=== PATIENT | female | born 1990 | race Caucasian/White ===

== ENCOUNTER 2016-10-11 10:46 | Outpatient (CLI) | payer OTHER | END 2016-10-11 10:47 | disposition home or self-care (01) | DX: M47.816 Spondylosis without myelopathy or radiculopathy, lumbar region (principal); Z98.1 Arthrodesis status; M54.5 Low back pain ==

== ENCOUNTER 2017-04-29 12:48 | Outpatient (CLI) | payer OTHER ==
[2017-04-29] MEDS ORDERED: GADOBUTROL 10 MMOL/10 ML VIAL IVP ONE (13:48)
--- NOTE | 2017-04-29 17:20 | MRI Preliminary Report ---
Exam: MRI Brain W/WO Impressions: 1. Suspicion for asymmetrical hypoenhancement within the right side of the pituitary maximum dimensio n 7 mm could represent a microadenoma, correlate clinically, no significant mass effect. Pituitary ot herwise not enlarged. Remaining brain and orbits are negative. [facility] SITE ID: [id number]
--- NOTE | 2017-04-29 17:23 | MRI Report ---
EXAM: MRI BRAIN AND PITUITARY EXAM DATE: 04/29/2017 02:01 PM. CLINICAL HISTORY: GALACTORRHEA. COMPARISON: Prior CT study had 09/18/2014. TECHNIQUE: Multiplanar, multisequence T1-weighted and fluid-sensitive MR sequences of the brain and p ituitary were performed. Other: None. IV Contrast: 5 cc Gadavist. Findings: Relevant images are indicated (image number, series number). There is no acute or subacute ischemic changes in the brain. Gradient echo imaging demonstrates no he mosiderin deposition present in the brain. Dynamic, static post contrast imaging of the pituitary sug gest right parasagittal hypoenhancing lesion 7 mm in maximum dimension craniocaudal (7, 1201), dynami c imaging demonstrates suspected asymmetrical hypoenhancement within the right side of the pituitary (30, 1101) postcontrast imaging demonstrates persistent of the hypoenhancing region with slight asymm etrical enlargement of the right-sided pituitary compared with lab. Infundibulum slightly deviated to wards the right. Overall pituitary not enlarged, infundibulum negative. Midbrain, craniocervical junc tion, limited evaluation upper cervical cord negative. Supratentorial brain otherwise unremarkable without hemorrhage, mass or midline shift, no white matte r disease or atrophy. Ventricles aren't dilated. Impressions: 1. Suspicion for asymmetrical hypoenhancement within the right side of the pituitary maximum dimensio n 7 mm could represent a microadenoma, correlate clinically, no significant mass effect. Pituitary ot herwise not enlarged. Remaining brain and orbits are negative. [facility] Referring Provider Line: [phone] SITE ID: [id number]
== END 2017-04-29 12:49 | disposition home or self-care (01) ==
LOC: DI 12:48
PROVIDERS: ATTEND Nurse Practitioner
DX: R90.89 Other abnormal findings on diagnostic imaging of central nervous system (principal)
CPT/HCPCS: 70553; A9585